=== PATIENT | female | born 1965 | race Caucasian/White ===

== ENCOUNTER 2021-01-17 16:16 | Inpatient (IN) | payer OTHER ==
[~2021-01-17] VITALS: Ht 162.6 cm; Wt 93.9 kg
[~2021-01-17 16:16] MED LIST: ETOMIDATE 2MG/ML 10ML VIAL IV ONE; SODIUM CHLORIDE 0.9% 10ML VIAL ONE; SUCCINYLCHOLINE CHLORIDE 200MG/10ML IV ONE; VECURONIUM BROMIDE 10 MG/VIAL IV ONE
[2021-01-17] MEDS ORDERED: NALOXONE HCL 1 MG/ML 2ML VIAL IV ONE (17:00)
[2021-01-17] MEDS ORDERED: PROPOFOL 10MG/ML 100ML 100 ML IV ONE (17:30)
[2021-01-17] MEDS ORDERED: ROCURONIUM BROMIDE 10MG/ML VIAL 5ML IV ONE (17:30)
[2021-01-17] MEDS ORDERED: ETOMIDATE 2MG/ML 10ML VIAL IV ONE (17:30)
[2021-01-17 17:41] LABS: BASOPHILS % 0.7 % (0.0-2.0); HEMATOCRIT. 41.2 % (36.0-48.0); HEMOGLOBIN. 13.6 g/dL (12.0-16.0); LYMPHOCYTES % 14.6 % (20.0-50.0); MEAN CORPUSCULAR HEMOGLOBIN 28.8 pg (28.0-32.0); MEAN CORPUSCULAR VOLUME 86.8 fL (81.0-99.0); MEAN PLATELET VOLUME 12.2 fl (7.4-10.4); MONOCYTES % 3.9 % (2.0-8.0); NEUTROPHILS % 79.8 % (40.0-76.0); PLATELET 159 x1000/uL (130-400); RED BLOOD CELL COUNT 4.74 mill/uL (4.2-5.4); RED CELL DISTRIBUTION WIDTH 13.3 % (11.6-14.6)
[2021-01-17 17:52] LABS: CHLORIDE 108 mEq/L (98-107)
[2021-01-17 17:56] LABS: ETHANOL BLOOD < 10 mg/dL
[2021-01-17 17:57] LABS: HCG SCREEN NEGATIVE
[2021-01-17 18:57] LABS: BG BASE EXCESS -0.2 mmol/L (-2.0-2.0); BG CARBOXYHEMOGLOBIN 0.3 % (0.5-1.5); BG DEOXYHEMOGLOBIN 1.6 % (0.0-5.0); BG FRACTION INSPIRED OXYGEN 50; BG HCO3 ACT 22.9 mmol/L (22.0-26.0); BG METHEMOGLOBIN 0.1 % (0.0-1.5); BG OXYGEN SATURATION 98.4 % (92.0-98.5); BG PCO2 32.8 mmHg (35.0-45.0); BG PH 7.461 (7.350-7.450); BG PO2 114.3 mmHg (75.0-100.0); BG SAMPLE SITE RIGHT RADIAL; BG TOTAL HEMOGLOBIN 13.7 g/dL (12.0-18.0); BG VENT MODE VENT - AC
[2021-01-17] MEDS ORDERED: CEFTRIAXONE 1 G PREMIX 50 ML IV NR (19:15)
[2021-01-17] MEDS ORDERED: AZITHROMYCIN 500 MG in DEXT 5% WATER 250 ML IV NR (19:15)
[2021-01-17] MEDS ORDERED: HYDROCODONE/ACETAMINOPHEN 5/325MG TABLET PO PRN (21:00)
[2021-01-17] MEDS ORDERED: ACETAMINOPHEN 325MG TABLET PO PRN (21:00)
[2021-01-17] MEDS ORDERED: DIPHENHYDRAMINE 50MG/ML VIAL IV PRN (21:00)
[2021-01-17] MEDS ORDERED: MAGNESIUM/ALUMINUM HYDROXIDE/SIMETHICONE 30ML UDC PO PRN (21:00)
[2021-01-17] MEDS ORDERED: GUAIFENESIN 200MG/10ML SUGAR FREE UDC PO PRN (21:00)
[2021-01-17] MEDS ORDERED: CLONIDINE 0.1MG TABLET PO PRN (21:00)
[2021-01-17] MEDS ORDERED: ONDANSETRON HCL 4MG/2ML INJ IV PRN (21:00)
[2021-01-17] MEDS: SODIUM CHLORIDE 0.9% INJ 3ML FLUSH IVF SCH (22:18)
[2021-01-17] MEDS: ENOXAPARIN 30MG/0.3ML SYR SUBCUT SCH (23:36)
[2021-01-17] MEDS: HYDRALAZINE 20MG/ML VIAL IV PRN (23:37)
[2021-01-18] MEDS: DEXT 5%/0.45% NACL 1000ML 1,000 ML IV SCH ×2 (00:42→21:37)
[2021-01-18 04:42] LABS: BASOPHILS % 0.6 % (0.0-2.0); EOSINOPHILS % 0.4 % (0.0-5.0); HEMATOCRIT. 42.6 % (36.0-48.0); HEMOGLOBIN. 13.8 g/dL (12.0-16.0); LYMPHOCYTES % 16.2 % (20.0-50.0); MEAN CORPUSCULAR HEMOGLOBIN 28.6 pg (28.0-32.0); MEAN CORPUSCULAR VOLUME 88.2 fL (81.0-99.0); MEAN PLATELET VOLUME 11.5 fl (7.4-10.4); MONOCYTES % 8.3 % (2.0-8.0); NEUTROPHILS % 74.5 % (40.0-76.0); PLATELET 135 x1000/uL (130-400); RED BLOOD CELL COUNT 4.83 mill/uL (4.2-5.4); RED CELL DISTRIBUTION WIDTH 13.6 % (11.6-14.6)
[2021-01-18 04:49] LABS: CHLORIDE 108 mEq/L (98-107)
[2021-01-18] MEDS: HYDRALAZINE 20MG/ML VIAL IV PRN (04:57)
[2021-01-18] MEDS ORDERED: PROPOFOL 10MG/ML 100ML 100 ML IV PRN ×2 (05:15→20:56)
[2021-01-18] MEDS: SODIUM CHLORIDE 0.9% INJ 3ML FLUSH IVF SCH ×3 (06:00→22:00)
[2021-01-18 07:07] LABS: CLARITY URINE CLOUDY (CLEAR); COLOR URINE YELLOW (YELLOW); KETONES URINE 3+ (NEGATIVE); LEUKOCYTE ESTERASE URINE 2+ (NEGATIVE); NITRITE URINE NEGATIVE (NEGATIVE); OCCULT BLOOD URINE 3+ (NEGATIVE); PH URINE 6.5 (4.5-8.0); PROTEIN URINE 1+ (NEGATIVE); SPECIFIC GRAVITY URINE 1.015 (1.005-1.030)
[2021-01-18 07:40] LABS: *COCAINE SCREEN URINE NEGATIVE (NEGATIVE); METHADONE URINE SCREEN NEGATIVE (NEGATIVE); OPIATES URINE SCREEN NEGATIVE (NEGATIVE)
[2021-01-18 07:41] LABS: *AMPHETAMINES SCREEN URINE NEGATIVE (NEGATIVE); *BARBITURATES SCREEN URINE NEGATIVE (NEGATIVE); *BENZODIAZEPINES SCREEN URINE NEGATIVE (NEGATIVE); CANNABINOID URINE SCREEN NEGATIVE (NEGATIVE); PHENCYCLIDINE URINE SCREEN NEGATIVE (NEGATIVE)
[2021-01-18] MEDS: ENOXAPARIN 30MG/0.3ML SYR SUBCUT SCH ×2 (08:48→23:06)
[2021-01-18] MEDS ORDERED: POTASSIUM CHLORIDE INJ 40 MEQ in DEXT 5% WATER 250 ML IV SCH (09:00)
[2021-01-18] MEDS: LORAZEPAM 2MG/ML CPJ IV PRN (20:41)
[2021-01-18] MEDS ORDERED: AZITHROMYCIN 500 MG in DEXT 5% WATER 250 ML IV SCH (21:00)
[2021-01-18] MEDS ORDERED: CEFTRIAXONE SODIUM 1 G/VIAL ONE (21:20)
[2021-01-18] MEDS ORDERED: MIDAZOLAM HCL 100 MG in SODIUM CHLORIDE 0.9% 100 ML IV PRN (23:00)
[2021-01-18] MEDS: CEFTRIAXONE 1,000 MG in DEXTROSE 5% WATER 50 ML IV SCH (23:05)
[2021-01-19] MEDS: LORAZEPAM 2MG/ML CPJ IV PRN (00:54)
[2021-01-19 04:37] LABS: HEMATOCRIT. 40.7 % (36.0-48.0); HEMOGLOBIN. 13.3 g/dL (12.0-16.0); MEAN CORPUSCULAR HEMOGLOBIN 28.7 pg (28.0-32.0); MEAN CORPUSCULAR VOLUME 88.2 fL (81.0-99.0); MEAN PLATELET VOLUME 12.4 fl (7.4-10.4); PLATELET 165 x1000/uL (130-400); RED BLOOD CELL COUNT 4.62 mill/uL (4.2-5.4); RED CELL DISTRIBUTION WIDTH 13.7 % (11.6-14.6)
[2021-01-19 04:45] LABS: CHLORIDE 108 mEq/L (98-107)
[2021-01-19] MEDS: SODIUM CHLORIDE 0.9% INJ 3ML FLUSH IVF SCH ×2 (06:07→14:00)
[2021-01-19 07:41] LABS: NUCLEATED RED BLOOD CELLS 1 /100 WBC; PLATELET ESTIMATE NORMAL
[2021-01-19] MEDS ORDERED: POTASSIUM CHLORIDE INJ 40 MEQ in DEXT 5% WATER 250 ML IV SCH (08:00)
[2021-01-19 08:22] LABS: BG BASE EXCESS -0.2 mmol/L (-2.0-2.0); BG CARBOXYHEMOGLOBIN 0.3 % (0.5-1.5); BG DEOXYHEMOGLOBIN 1.2 % (0.0-5.0); BG HCO3 ACT 22.6 mmol/L (22.0-26.0); BG METHEMOGLOBIN 0.1 % (0.0-1.5); BG OXYGEN SATURATION 98.8 % (92.0-98.5); BG OXYHEMOGLOBIN 98.4 % (94.0-97.0); BG PCO2 31.6 mmHg (35.0-45.0); BG PH 7.472 (7.350-7.450); BG PO2 144.7 mmHg (75.0-100.0); BG SAMPLE SITE RIGHT RADIAL; BG TOTAL HEMOGLOBIN 13.6 g/dL (12.0-18.0); BG VENT MODE VENT - AC
[2021-01-19] MEDS: ENOXAPARIN 30MG/0.3ML SYR SUBCUT SCH (10:22)
[2021-01-19] MEDS: DEXT 5%/0.45% NACL 1000ML 1,000 ML IV SCH (20:19)
[2021-01-19] MEDS: CEFTRIAXONE 1,000 MG in DEXTROSE 5% WATER 50 ML IV SCH (20:19)
[2021-01-19] MEDS ORDERED: PROPOFOL 10MG/ML 100ML 100 ML IV PRN (23:45)
[2021-01-20] VITALS (83 sets, daily range): BP systolic 101–158; BP diastolic 61–97
[2021-01-20] MEDS: ENOXAPARIN 30MG/0.3ML SYR SUBCUT SCH ×3 (00:43→22:00)
[2021-01-20] MEDS: AZITHROMYCIN 500 MG in DEXT 5% WATER 250 ML IV SCH (03:52)
[2021-01-20] MEDS: PROPOFOL 10MG/ML 100ML 100 ML IV PRN ×4 (05:05→19:38)
[2021-01-20] MEDS ORDERED: CYCL10TA7 PO (06:00)
[2021-01-20] MEDS ORDERED: DIPH-1042 PO (06:00)
[2021-01-20] MEDS ORDERED: HYDR-4001 PO (06:00)
[2021-01-20] MEDS ORDERED: CLON1TAB12 PO (06:00)
[2021-01-20 06:02] LABS: BASOPHILS % 0.4 % (0.0-2.0); EOSINOPHILS % 3.7 % (0.0-5.0); HEMATOCRIT. 37.1 % (36.0-48.0); HEMOGLOBIN. 12.5 g/dL (12.0-16.0); LYMPHOCYTES % 20.3 % (20.0-50.0); MEAN CORPUSCULAR HEMOGLOBIN 28.7 pg (28.0-32.0); MEAN CORPUSCULAR VOLUME 85.2 fL (81.0-99.0); MEAN PLATELET VOLUME 11.9 fl (7.4-10.4); MONOCYTES % 9.2 % (2.0-8.0); NEUTROPHILS % 66.4 % (40.0-76.0); PLATELET 136 x1000/uL (130-400); RED BLOOD CELL COUNT 4.36 mill/uL (4.2-5.4); RED CELL DISTRIBUTION WIDTH 13.2 % (11.6-14.6)
[2021-01-20 06:26] LABS: CHLORIDE 109 mEq/L (98-107)
[2021-01-20] MEDS: PANTOPRAZOLE SODIUM 40 MG/VIAL IV SCH (08:50)
[2021-01-20] MEDS: DOCUSATE SODIUM 100MG CAPSULE PO PRN (08:53)
[2021-01-20 09:25] LABS: BG BASE EXCESS 0.6 mmol/L (-2.0-2.0); BG CARBOXYHEMOGLOBIN 0.6 % (0.5-1.5); BG DEOXYHEMOGLOBIN 2.4 % (0.0-5.0); BG FRACTION INSPIRED OXYGEN 40; BG HCO3 ACT 23.3 mmol/L (22.0-26.0); BG METHEMOGLOBIN 0.2 % (0.0-1.5); BG OXYGEN SATURATION 97.6 % (92.0-98.5); BG OXYHEMOGLOBIN 96.8 % (94.0-97.0); BG PCO2 31.8 mmHg (35.0-45.0); BG PH 7.483 (7.350-7.450); BG SAMPLE SITE RIGHT RADIAL; BG TOTAL HEMOGLOBIN 13.3 g/dL (12.0-18.0); BG VENT MODE VENT - AC
[2021-01-20] MEDS ORDERED: POTASSIUM CHLORIDE 20MEQ/PACKET PO NR (11:30)
[2021-01-20] MEDS ORDERED: NALOXONE HCL 0.4MG/ML VIAL IV PRN (14:30)
[2021-01-20] MEDS ORDERED: IPRATROPIUM/ALBUTEROL 0.5-3(2.5)MG/3ML NEB HHN PRN (14:30)
[2021-01-20] MEDS: CEFTRIAXONE 1,000 MG in DEXTROSE 5% WATER 50 ML IV SCH (20:16)
[2021-01-20] MEDS: IPRATROPIUM/ALBUTEROL 0.5-3(2.5)MG/3ML NEB HHN SCH (21:27)
[2021-01-20] MEDS: DEXT 5%/0.45% NACL 1000ML 1,000 ML IV SCH (21:59)
[2021-01-21] VITALS (82 sets, daily range): BP systolic 96–190; BP diastolic 55–126
[2021-01-21] MEDS: MORPHINE SULFATE 2 MG/ML CPJ (NOT FOR IM USE) IV PRN ×3 (00:26→21:55)
[2021-01-21] MEDS: PROPOFOL 10MG/ML 100ML 100 ML IV PRN ×2 (00:44→06:05)
[2021-01-21] MEDS: IPRATROPIUM/ALBUTEROL 0.5-3(2.5)MG/3ML NEB HHN SCH ×4 (01:31→21:58)
[2021-01-21 05:59] LABS: BASOPHILS % 0.7 % (0.0-2.0); EOSINOPHILS % 6.5 % (0.0-5.0); HEMATOCRIT. 34.5 % (36.0-48.0); HEMOGLOBIN. 11.8 g/dL (12.0-16.0); LYMPHOCYTES % 28.5 % (20.0-50.0); MEAN CORPUSCULAR HEMOGLOBIN 29.2 pg (28.0-32.0); MEAN CORPUSCULAR VOLUME 85.8 fL (81.0-99.0); MEAN PLATELET VOLUME 12.3 fl (7.4-10.4); MONOCYTES % 8.8 % (2.0-8.0); NEUTROPHILS % 55.5 % (40.0-76.0); PLATELET 130 x1000/uL (130-400); RED BLOOD CELL COUNT 4.02 mill/uL (4.2-5.4); RED CELL DISTRIBUTION WIDTH 13.4 % (11.6-14.6)
[2021-01-21 06:14] LABS: CHLORIDE 108 mEq/L (98-107)
[2021-01-21] MEDS: ENOXAPARIN 30MG/0.3ML SYR SUBCUT SCH ×2 (08:03→21:49)
[2021-01-21] MEDS: AZITHROMYCIN 500 MG in DEXT 5% WATER 250 ML IV SCH (08:03)
[2021-01-21] MEDS: PANTOPRAZOLE SODIUM 40 MG/VIAL IV SCH (08:03)
[2021-01-21 08:45] LABS: BG BASE EXCESS 0.1 mmol/L (-2.0-2.0); BG CARBOXYHEMOGLOBIN 0.3 % (0.5-1.5); BG DEOXYHEMOGLOBIN 2.1 % (0.0-5.0); BG HCO3 ACT 23.5 mmol/L (22.0-26.0); BG METHEMOGLOBIN 0.1 % (0.0-1.5); BG OXYGEN SATURATION 97.9 % (92.0-98.5); BG OXYHEMOGLOBIN 97.5 % (94.0-97.0); BG PCO2 34.5 mmHg (35.0-45.0); BG PH 7.452 (7.350-7.450); BG PO2 104.7 mmHg (75.0-100.0); BG SAMPLE SITE RIGHT RADIAL; BG TOTAL HEMOGLOBIN 12.7 g/dL (12.0-18.0); BG VENT MODE VENT - AC
[2021-01-21] MEDS ORDERED: PROPOFOL 10MG/ML 100ML 100 ML IV PRN (09:30)
[2021-01-21] MEDS: THIAMINE HCL 100MG TABLET PO SCH (09:35)
[2021-01-21 12:11] LABS: BG BASE EXCESS -0.5 mmol/L (-2.0-2.0); BG CARBOXYHEMOGLOBIN 0.1 % (0.5-1.5); BG DEOXYHEMOGLOBIN 5.8 % (0.0-5.0); BG FRACTION INSPIRED OXYGEN 40; BG METHEMOGLOBIN 0.2 % (0.0-1.5); BG OXYGEN SATURATION 94.2 % (92.0-98.5); BG OXYHEMOGLOBIN 93.9 % (94.0-97.0); BG PCO2 39.2 mmHg (35.0-45.0); BG PH 7.405 (7.350-7.450); BG PO2 71.2 mmHg (75.0-100.0); BG SAMPLE SITE RIGHT RADIAL; BG TOTAL HEMOGLOBIN 13.2 g/dL (12.0-18.0); BG VENT MODE VENT - CPAP
[2021-01-21] MEDS ORDERED: BACL-141 MT (18:45)
[2021-01-21] MEDS ORDERED: IBUP-2029 MT (18:45)
[2021-01-21] MEDS: DEXT 5%/0.45% NACL 1000ML 1,000 ML IV SCH (20:28)
[2021-01-21] MEDS: CEFTRIAXONE 1,000 MG in DEXTROSE 5% WATER 50 ML IV SCH (20:28)
[2021-01-22] VITALS (27 sets, daily range): BP systolic 97–173; BP diastolic 55–127
[2021-01-22] MEDS: IPRATROPIUM/ALBUTEROL 0.5-3(2.5)MG/3ML NEB HHN SCH ×4 (03:06→21:45)
[2021-01-22 05:45] LABS: BASOPHILS % 0.5 % (0.0-2.0); EOSINOPHILS % 6.5 % (0.0-5.0); HEMATOCRIT. 36.8 % (36.0-48.0); HEMOGLOBIN. 12.3 g/dL (12.0-16.0); LYMPHOCYTES % 25.6 % (20.0-50.0); MEAN CORPUSCULAR HEMOGLOBIN 28.7 pg (28.0-32.0); MEAN CORPUSCULAR VOLUME 86.1 fL (81.0-99.0); MEAN PLATELET VOLUME 11.8 fl (7.4-10.4); MONOCYTES % 9.4 % (2.0-8.0); PLATELET 154 x1000/uL (130-400); RED BLOOD CELL COUNT 4.28 mill/uL (4.2-5.4); RED CELL DISTRIBUTION WIDTH 13.5 % (11.6-14.6)
[2021-01-22 05:49] LABS: CHLORIDE 109 mEq/L (98-107)
[2021-01-22] MEDS: ENOXAPARIN 30MG/0.3ML SYR SUBCUT SCH ×2 (08:21→22:31)
[2021-01-22] MEDS: AZITHROMYCIN 500 MG in DEXT 5% WATER 250 ML IV SCH (08:21)
[2021-01-22] MEDS: PANTOPRAZOLE SODIUM 40 MG/VIAL IV SCH (08:21)
[2021-01-22] MEDS: THIAMINE HCL 100MG TABLET PO SCH (09:00)
[2021-01-22] MEDS ORDERED: POTASSIUM CHLORIDE INJ 40 MEQ in DEXT 5% WATER 250 ML IV NR (12:30)
[2021-01-22] MEDS: CEFTRIAXONE 1,000 MG in DEXTROSE 5% WATER 50 ML IV SCH (22:30)
[2021-01-22] MEDS: DEXT 5%/0.45% NACL 1000ML 1,000 ML IV SCH (22:31)
[2021-01-23 00:48] VITALS: BP 108/70
[2021-01-23 04:00] VITALS: BP 140/93
[2021-01-23 08:00] VITALS: BP 132/85
[2021-01-23] MEDS: IPRATROPIUM/ALBUTEROL 0.5-3(2.5)MG/3ML NEB HHN SCH ×3 (08:00→20:41)
[2021-01-23] MEDS: ENOXAPARIN 30MG/0.3ML SYR SUBCUT SCH ×2 (09:00→20:27)
[2021-01-23] MEDS: THIAMINE HCL 100MG TABLET PO SCH ×2 (09:00→13:45)
[2021-01-23] MEDS: AZITHROMYCIN 500 MG in DEXT 5% WATER 250 ML IV SCH (09:00)
[2021-01-23] MEDS: PANTOPRAZOLE SODIUM 40 MG/VIAL IV SCH (09:00)
[2021-01-23 12:00] VITALS: BP 155/78
[2021-01-23] MEDS: FAMOTIDINE 20MG TABLET PO SCH ×2 (13:45→20:27)
[2021-01-23 16:00] VITALS: BP 135/68
[2021-01-23 20:00] VITALS: BP 139/99
[2021-01-23] MEDS: DEXT 5%/0.45% NACL 1000ML 1,000 ML IV SCH (20:28)
[2021-01-23] MEDS: CEFTRIAXONE 1,000 MG in DEXTROSE 5% WATER 50 ML IV SCH (20:28)
[2021-01-24] VITALS: BP 128/87
[2021-01-24] MEDS: LORAZEPAM 2MG/ML CPJ IV PRN ×2 (00:11→07:20)
[2021-01-24 04:00] VITALS: BP 136/97
[2021-01-24 08:00] VITALS: BP 135/93
[2021-01-24] MEDS: IPRATROPIUM/ALBUTEROL 0.5-3(2.5)MG/3ML NEB HHN SCH ×3 (08:00→21:13)
[2021-01-24] MEDS: FAMOTIDINE 20MG TABLET PO SCH ×2 (10:22→21:06)
[2021-01-24] MEDS: ENOXAPARIN 30MG/0.3ML SYR SUBCUT SCH ×2 (10:22→21:06)
[2021-01-24 12:00] VITALS: BP 122/83
[2021-01-24 16:00] VITALS: BP 126/80
[2021-01-24 20:00] VITALS: BP 130/90
[2021-01-24] MEDS: DEXT 5%/0.45% NACL 1000ML 1,000 ML IV SCH (21:37)
[2021-01-25] VITALS: BP 120/81
[2021-01-25 08:00] VITALS: BP 114/66
[2021-01-25] MEDS: IPRATROPIUM/ALBUTEROL 0.5-3(2.5)MG/3ML NEB HHN SCH ×4 (08:36→18:00)
[2021-01-25] MEDS: FAMOTIDINE 20MG TABLET PO SCH ×2 (08:59→20:31)
[2021-01-25] MEDS ORDERED: DOCUSATE SODIUM SUGAR FREE 100MG/10ML UDC PO SCH (09:00)
[2021-01-25] MEDS: DOCUSATE SODIUM 100MG CAPSULE PO PRN (09:02)
[2021-01-25] MEDS: ENOXAPARIN 30MG/0.3ML SYR SUBCUT SCH ×2 (09:03→20:31)
[2021-01-25] MEDS: THIAMINE HCL 100MG TABLET PO SCH (09:07)
[2021-01-25 12:00] VITALS: BP 127/82
[2021-01-25 16:28] VITALS: BP 108/75
[2021-01-25] MEDS: DOCUSATE SODIUM 100MG CAPSULE PO SCH (17:54)
[2021-01-25 20:00] VITALS: BP 106/84
[2021-01-25] MEDS: DEXT 5%/0.45% NACL 1000ML 1,000 ML IV SCH (21:00)
[2021-01-25] MEDS: LORAZEPAM 2MG/ML CPJ IV PRN (21:23)
[2021-01-26] VITALS: BP 103/66
[2021-01-26] MEDS: IPRATROPIUM/ALBUTEROL 0.5-3(2.5)MG/3ML NEB HHN SCH ×4 (07:45→20:56)
[2021-01-26 08:00] VITALS: BP 136/87
[2021-01-26] MEDS: DOCUSATE SODIUM 100MG CAPSULE PO SCH ×2 (09:00→17:00)
[2021-01-26] MEDS: ENOXAPARIN 30MG/0.3ML SYR SUBCUT SCH ×2 (10:09→22:57)
[2021-01-26] MEDS: FAMOTIDINE 20MG TABLET PO SCH ×2 (10:09→22:57)
[2021-01-26] MEDS: THIAMINE HCL 100MG TABLET PO SCH (10:09)
[2021-01-26 12:00] VITALS: BP 100/61
[2021-01-26 16:00] VITALS: BP 116/62
[2021-01-26 20:00] VITALS: BP 147/80
[2021-01-26] MEDS: DEXT 5%/0.45% NACL 1000ML 1,000 ML IV SCH (22:57)
[2021-01-26] MEDS: LORAZEPAM 2MG/ML CPJ IV PRN (22:57)
[2021-01-27] MEDS: IPRATROPIUM/ALBUTEROL 0.5-3(2.5)MG/3ML NEB HHN SCH (01:20)
[2021-01-27 04:00] VITALS: BP 123/69
[2021-01-27 08:00] VITALS: BP 139/94
[2021-01-27] MEDS: ENOXAPARIN 30MG/0.3ML SYR SUBCUT SCH (09:53)
[2021-01-27] MEDS: THIAMINE HCL 100MG TABLET PO SCH (09:53)
[2021-01-27] MEDS: DOCUSATE SODIUM 100MG CAPSULE PO SCH (09:53)
[2021-01-27] MEDS: FAMOTIDINE 20MG TABLET PO SCH (09:53)
[2021-01-27 12:10] VITALS: BP 139/94
== END 2021-01-27 12:25 | disposition home or self-care (01) | DRG 871 ==
LOC: ER 16:25 → MICUSO 20:25 → EDBEDREQ 20:28 → MICUSO 01-20 01:16 → 6WST 01-22 13:23
PROVIDERS: ADMIT Internal Medicine; ATTEND Internal Medicine
PROC: 5A1945Z Respiratory Ventilation, 24-96 Consecutive Hours (ICD-10-PCS; principal; 2021-01-17)
PROC: 0BH17EZ Insertion of Endotracheal Airway into Trachea, Via Natural or Artificial Opening (ICD-10-PCS; 2021-01-17)
PROC: 4A10X4Z Monitoring of Central Nervous Electrical Activity, External Approach (ICD-10-PCS; 2021-01-22)
DX: A41.9 Sepsis, unspecified organism (principal); G93.41 Metabolic encephalopathy; J96.00 Acute respiratory failure, unspecified whether with hypoxia or hypercapnia; J18.9 Pneumonia, unspecified organism; N39.0 Urinary tract infection, site not specified; E87.6 Hypokalemia; G24.9 Dystonia, unspecified; R65.20 Severe sepsis without septic shock; E66.9 Obesity, unspecified; Z20.822 Contact with and (suspected) exposure to COVID-19; Z79.899 Other long term (current) drug therapy; Z68.35 Body mass index [BMI] 35.0-35.9, adult
CPT/HCPCS: 36415; 36600; 70551; 71045; 72141; 80048; 80053; 80305; 80307; 80320; 80329; 81003; 82140; 82375; 82805; 82962; 83605; 83880; 84145; 84478; 84484; 84703; 85025; 87070; 87426; 92610; 93005; 94002; 94003; 94640; 95816; 97162; 97166; 99291; A6261; C1893; C9113; J0330; J0360; J0456; J0696; J1650; J2060; J2270; J2310; J2704; J3480; J3490; J7060; U0003; U0005; A4315; G0480